=== PATIENT | female | born 1945 | race Caucasian/White ===

== ENCOUNTER 2021-11-07 17:28 | Emergency (ER) | payer MEDICARE, OTHER ==
[2021-11-07] MEDS ORDERED: Sodium Chloride 0.9% 1000 ML 1,000 ML IV STA (17:51)
[2021-11-07] MEDS ORDERED: BABY ASPIRIN 81 MG CHEW PO ONE (17:51)
[2021-11-07] MEDS ORDERED: Zofran 4 MG/2 ML VIAL IV ONE (17:51)
[2021-11-07] MEDS ORDERED: BABY ASPIRIN 81 MG CHEW ONE (17:55)
[2021-11-07] MEDS ORDERED: Sodium Chloride 0.9% 1000 ML 1,000 ML ONE (17:55)
[2021-11-07] MEDS ORDERED: Zofran 4 MG/2 ML VIAL ONE (17:55)
--- NOTE | 2021-11-07 18:00 | ERPHSYRPT ---
- History of Present Illness Time Seen by Provider: 11/07/21 17:39 Source: patient Exam Limitations: no limitations Patient Subjective Stated Complaint: C/O chest pain that started around 0500 today. States pain radiates into left arm and scapula. Triage Nursing Assessment: Went to get patient from the waiting area to triage and she was in the bathroom having a bowel movement. She then came out and ambulated back to her room without difficulties. No SOB noted at this time. Left arm noted to be swollen/bigger than the right; patient indicates this is normal for her with a diagnosis of lymphodema. Physician History: Patient is here with left arm pain radiating into her back. Patient has no falls or trauma. Patient states that she only has a history of hypertension. Patient does have some lymphedema in the left arm. Patient states that her chest pain started when she woke up this morning. Has continued throughout the day. It has been constant. Patient does see a reinsurance analyst. However, this is only for her hypertension. She denies any other cardiac risk factors. Timing/Duration: today Severity: mild Modifying Factors: Improves With: other Allergies/Adverse Reactions: levofloxacin [From Levaquin] Allergy (Verified 11/07/21 17:56) Penicillins Allergy (Verified 11/07/21 17:37) prednisone Allergy (Verified 11/07/21 17:56) Home Medications: Anastrozole [Arimidex] 1 tab PO DAILY 11/07/21 [History] Aspirin 81 gm Chew [Baby Aspirin 81 mg Chew] 1 tab PO DAILY 11/07/21 [History] Budesonide/Formoterol Fumarate [Budesonide-Formoterol 160-4.5] 1 puff PO DAILY 11/07/21 [History] Chlorthalidone 1 tab PO DAILY 11/07/21 [History] Hx Tetanus, Diphtheria Vaccination/Date Given: Yes Hx Influenza Vaccination/Date Given: No Hx Pneumococcal Vaccination/Date Given: No Immunizations Up to Date: Yes Travel Risk - International Travel Have you traveled outside of the country in past 3 weeks: No - Coronavirus Screening Are you exhibiting any of the following symptoms?: No Close contact with a COVID-19 positive Pt in past 14-21 Days: No - Vaccine Status Have you recieved a Covid-19 vaccination: No - Review of Systems Constitutional: No Fever, No Chills Eyes: No Symptoms Ears, Nose, & Throat: No Symptoms Respiratory: No Cough, No Dyspnea Cardiac: Chest Pain, No Edema, No Syncope Abdominal/Gastrointestinal: No Abdominal Pain, No Nausea, No Vomiting, No Diarrhea Genitourinary Symptoms: No Dysuria Musculoskeletal: No Back Pain, No Neck Pain Skin: No Rash Neurological: No Dizziness, No Focal Weakness, No Sensory Changes Psychological: No Symptoms Endocrine: No Symptoms All Other Systems: Reviewed and Negative - Past Medical History Pertinent Past Medical History: Yes Neurological History: No Pertinent History ENT History: No Pertinent History Cardiac History: Hypertension Respiratory History: Asthma Endocrine Medical History: No Pertinent History Musculoskeletal History: No Pertinent History GI Medical History: No Pertinent History History: No Pertinent History Psycho-Social History: No Pertinent History Female Reproductive Disorders: Breast Cancer Other Medical History: cyst on thyroid, Staph infection, Left arm Lymphodema - Past Surgical History Past Surgical History: Yes Cardiac: No Pertinent History Gastrointestinal: Appendectomy Genitourinary: No Pertinent History Musculoskeletal: No Pertinent History Female Surgical History: Hysterectomy, Mastectomy - Social History Smoking Status: Never smoker Exposure to second hand smoke: No Drug Use: none Patient Lives Alone: No - Nursing Vital Signs Nursing Vital Signs: Initial Vital Signs Temperature 98.8 F 11/07/21 17:39 Pulse Rate 78 11/07/21 17:39 Respiratory Rate 20 11/07/21 17:39 Blood Pressure 165/85 11/07/21 17:39 O2 Sat by Pulse Oximetry 100 11/07/21 17:39 Pain Scale Pain Intensity 7 - Physical Exam General Appearance: no apparent distress, alert Eye Exam: PERRL/EOMI, eyes nml inspection Ears, Nose, Throat Exam: normal ENT inspection, TMs normal, pharynx normal, moist mucous membranes Neck Exam: normal inspection, non-tender, supple, full range of motion Respiratory Exam: normal breath sounds, lungs clear, No respiratory distress Cardiovascular Exam: regular rate/rhythm, normal heart sounds, normal peripheral pulses Gastrointestinal/Abdomen Exam: soft, normal bowel sounds, No tenderness, No mass Back Exam: normal inspection, normal range of motion, No CVA tenderness, No vertebral tenderness Extremity Exam: normal inspection, normal range of motion, pelvis stable Neurologic Exam: alert, oriented x 3, cooperative, normal mood/affect, nml cerebellar function, nml station & gait, sensation nml, No motor deficits Skin Exam: normal color, warm, dry, No rash Lymphatic Exam: No adenopathy SpO2: 100 - Course Nursing assessment & vital signs reviewed: Yes Ordered Tests: Active Orders 24 hr Category Date Time Status EKG-ER Only STAT Care 11/07/21 17:51 Active IV Insertion STAT Care 11/07/21 17:51 Active CHEST 1 VIEW (PORTABLE) Stat Exams 11/07/21 17:51 Taken CHEST WITH CONTRAST [CT] Stat Exams 11/07/21 18:37 Ordered CBC W DIFF Stat Lab 11/07/21 17:51 Completed CMP Stat Lab 11/07/21 18:09 Completed D-DIMER QUANTITATIVE Stat Lab 11/07/21 17:51 Completed LIPASE Stat Lab 11/07/21 18:09 Completed NT PRO BNP Stat Lab 11/07/21 18:09 Completed TROPONIN Q4H Lab 11/07/21 18:08 Completed TROPONIN Q4H Lab 11/07/21 22:00 Ordered TROPONIN Q4H Lab 11/08/21 02:00 Ordered Medication Summary Generic Name Dose Route Start Last Admin Trade Name Freq PRN Reason Stop Dose Admin Sodium Chloride 1,000 mls @ 999 mls/hr 11/07/21 17:51 11/07/21 17:57 Sodium Chloride 0.9% 1000 Ml IV 11/07/21 18:51 999 mls/hr .Q1H1M STA Administration Discontinued Medications Generic Name Dose Route Start Last Admin Trade Name Freq PRN Reason Stop Dose Admin Aspirin 324 mg 11/07/21 17:51 Aspirin 81 Mg Tab.Chew PO 11/07/21 17:52 STAT ONE Aspirin Confirm 11/07/21 17:55 Aspirin 81 Mg Tab.Chew Administered 11/07/21 17:56 Dose 324 mg .ROUTE .STK-MED ONE Sodium Chloride Confirm 11/07/21 17:55 Sodium Chloride 0.9% 1000 Ml Administered 11/07/21 17:56 Dose 1,000 mls @ ud .ROUTE .STK-MED ONE Ondansetron HCl 4 mg 11/07/21 17:51 Ondansetron Hcl 4 Mg/2 Ml Vial IV 11/07/21 17:52 STAT ONE Ondansetron HCl Confirm 11/07/21 17:55 Ondansetron Hcl 4 Mg/2 Ml Vial Administered 11/07/21 17:56 Dose 4 mg .ROUTE .STK-MED ONE Lab/Rad Data: Laboratory Result Diagrams 11/07/21 17:51 11/07/21 18:09 Laboratory Results 11/07/21 11/07/21 11/07/21 Range/Units 18:09 18:08 17:51 WBC (4.0-10.5) x10^3/uL RBC (4.1-5.4) x10^6/uL Hgb (12.0-16.0) g/dL Hct (35-47) % MCV (78-100) fL MCH (26-32) pg MCHC (32-36) g/dL RDW (11.5-14.0) % Plt Count (150-450) x10^3/uL MPV (7.5-11.0) fL Gran % (36.0-66.0) % Immature Gran % (Auto) (0.00-0.4) % Nucleat RBC Rel Count (0.00-0.1) % Eos # (Auto) (0-0.5) x10^3/uL Immature Gran # (Auto) (0.00-0.03) x10^3u/L Absolute Lymphs (auto) (1.0-4.6) x10^3/uL Absolute Monos (auto) (0.0-1.3) x10^3/uL Absolute Nucleated RBC (0.00-0.01) x10^3u/L Lymphocytes % (24.0-44.0) % Monocytes % (0.0-12.0) % Eosinophils % (0.00-5.0) % Basophils % (0.0-0.4) % Absolute Granulocytes (1.4-6.9) x10^3/uL Basophils # (0-0.4) x10^3/uL D-Dimer 0.92 H* (0.0-0.50) mg/L Sodium 138 (137-145) mmol/L Potassium 3.5 (3.5-5.1) mmol/L Chloride 100 (98-107) mmol/L Carbon Dioxide 30 (22-30) mmol/L Anion Gap 11.5 (5-15) MEQ/L BUN 31 H (7-17) mg/dL Creatinine 0.91 (0.52-1.04) mg/dL Estimated GFR > 60.0 ML/MIN Glucose 108 H (74-106) mg/dL Calcium 10.5 H (8.4-10.2) mg/dL Total Bilirubin 0.40 (0.2-1.3) mg/dL AST 34 (14-36) U/L ALT 30 (0-35) U/L Alkaline Phosphatase 74 (38-126) U/L Troponin I < 0.012 (0.000-0.034) ng/mL NT-Pro-B Natriuret Pep 89.3 (0-1800) pg/mL Serum Total Protein 8.0 (6.3-8.2) g/dL Albumin 4.4 (3.5-5.0) g/dL Lipase 93 (23-300) U/L 11/07/21 Range/Units 17:51 WBC 6.8 (4.0-10.5) x10^3/uL RBC 3.97 L (4.1-5.4) x10^6/uL Hgb 13.2 (12.0-16.0) g/dL Hct 39.4 (35-47) % MCV 99.2 (78-100) fL MCH 33.2 H (26-32) pg MCHC 33.5 (32-36) g/dL RDW 12.9 (11.5-14.0) % Plt Count 401 (150-450) x10^3/uL MPV 9.5 (7.5-11.0) fL Gran % 71.7 H (36.0-66.0) % Immature Gran % (Auto) 0.1 (0.00-0.4) % Nucleat RBC Rel Count 0.0 (0.00-0.1) % Eos # (Auto) 0.30 (0-0.5) x10^3/uL Immature Gran # (Auto) 0.01 (0.00-0.03) x10^3u/L Absolute Lymphs (auto) 1.16 (1.0-4.6) x10^3/uL Absolute Monos (auto) 0.41 (0.0-1.3) x10^3/uL Absolute Nucleated RBC 0.00 (0.00-0.01) x10^3u/L Lymphocytes % 17.1 L (24.0-44.0) % Monocytes % 6.0 (0.0-12.0) % Eosinophils % 4.4 (0.00-5.0) % Basophils % 0.7 (0.0-0.4) % Absolute Granulocytes 4.87 (1.4-6.9) x10^3/uL Basophils # 0.05 (0-0.4) x10^3/uL D-Dimer (0.0-0.50) mg/L Sodium (137-145) mmol/L Potassium (3.5-5.1) mmol/L Chloride (98-107) mmol/L Carbon Dioxide (22-30) mmol/L Anion Gap (5-15) MEQ/L BUN (7-17) mg/dL Creatinine (0.52-1.04) mg/dL Estimated GFR ML/MIN Glucose (74-106) mg/dL Calcium (8.4-10.2) mg/dL Total Bilirubin (0.2-1.3) mg/dL AST (14-36) U/L ALT (0-35) U/L Alkaline Phosphatase (38-126) U/L Troponin I (0.000-0.034) ng/mL NT-Pro-B Natriuret Pep (0-1800) pg/mL Serum Total Protein (6.3-8.2) g/dL Albumin (3.5-5.0) g/dL Lipase (23-300) U/L - Progress Progress: improved Progress Note: 11/07/21 17:57 Differential diagnosis includes STEMI, PE, infection, pneumonia. -We will obtain EKG, basic labs, two troponins. Consider a CT scan depending on D-dimer and reexam. 11/07/21 18:43 D-dimer is positive. Therefore will obtain a CT scan of the chest looking for PE this could also demonstrate a aortic dissection. Plan for second troponin. Transfer of care to Dr. Johnson. He will follow-up on all labs and imaging. He will reexamine patient and have appropriate disposition. - Departure Clinical Impression: Chest pain Condition: Good Critical Care Time: No
[2021-11-07 18:11] LABS: Absolute Neutrophil Ct (ANC) 4.87 x10^3/uL (1.4-6.9); Basophil (Absolute #) 0.05 x10^3/uL (0-0.4); Eosinophil % 4.4 % (0.00-5.0); Hematocrit 39.4 % (35-47); Hemoglobin 13.2 g/dL (12.0-16.0); Lymphocyte (Absolute #) 1.16 x10^3/uL (1.0-4.6); Lymphocytes % 17.1 % (24.0-44.0); Mean Cell Volume 99.2 fL (78-100); Mean Corpuscular Hemoglobin 33.2 pg (26-32); Mean Corpuscular Hgb Concent. 33.5 g/dL (32-36); Mean Platelet Volume 9.5 fL (7.5-11.0); Monocyte (Absolute #) 0.41 x10^3/uL (0.0-1.3); Neutrophil % 71.7 % (36.0-66.0); Platelet Count 401 x10^3/uL (150-450); Red Blood Count 3.97 x10^6/uL (4.1-5.4); Red Cell Distribution Width 12.9 % (11.5-14.0); White Blood Count 6.8 x10^3/uL (4.0-10.5)
[2021-11-07 18:34] LABS: ALBUMIN 4.4 g/dL (3.5-5.0); ALKALINE PHOSPHATASE 74 U/L (38-126); ANION GAP 11.5 MEQ/L (5-15); BLOOD UREA NITROGEN 31 mg/dL (7-17); CHLORIDE 100 mmol/L (98-107); Calcium 10.5 mg/dL (8.4-10.2); Carbon Dioxide 30 mmol/L (22-30); Creatinine 1 0.91 mg/dL (0.52-1.04); EST GLOMERULAR FILTRATION RATE > 60.0 ML/MIN; Glucose 108 mg/dL (74-106); LIPASE 93 U/L (23-300); NT PRO BNP 89.3 pg/mL (0-1800); Potassium 3.5 mmol/L (3.5-5.1); SGOT/AST 34 U/L (14-36); SGPT/ALT 30 U/L (0-35); SODIUM 138 mmol/L (137-145)
[2021-11-07 20:49] VITALS: BP 173/86; PULSE 68; O2SAT 95
--- NOTE | 2021-11-08 08:44 | XRAY ---
Indication: Chest pain. Elevated d-dimer. Multiple contiguous axial images obtained through the abdomen and pelvis using 100 cc Isovue 370 contrast and PE protocol. Comparison: None Good opacification of the pulmonary arteries to include the lobar and segmental branches. No pulmonary embolus. Heart is not enlarged. Aorta is minimally arteriosclerotic without aneurysm/dissection. Small left hilar calcified nodes. No pathologic mediastinal/hilar lymphadenopathy. Small hiatal hernia. Lungs demonstrates minimal peripheral fibrosis/scarring bilaterally and tiny left upper lobe peripheral calcified granulomas. Incidental anatomic variant for azygos lobe. No suspicious pulmonary mass, infiltrate, effusion, or pneumothorax. Bony thorax intact with minimal degenerative changes throughout the spine. Incidental bilateral breast implants with surgical clips. Limited upper abdomen demonstrates 2 hepatic cysts, largest right lobe measuring 1.4 cm. Impression: 1. Negative pulmonary embolus. No acute cardiopulmonary abnormalities. 2. Chronic findings including pulmonary fibrosis/scarring, small hiatal hernia, hepatic cysts, and evidence for old granulomatous disease. Comment: Preliminary interpretation made by [facility]. No critical discrepancy.
--- NOTE | 2021-11-08 08:44 | XRAY ---
Indication: Chest pain. Comparison: None Portable chest inflated and clear with a few incidental tiny calcified granulomas. Heart not enlarged. Bony thorax intact with osteopenia and minimal degenerative changes. Incidental bilateral breast implants with surgical clips. Impression: Nonacute chest with chronic features.
== END 2021-11-07 22:24 | disposition home or self-care (01) ==
LOC: ED 17:28
DX: R07.9 Chest pain, unspecified (principal); M79.602 Pain in left arm; I10 Essential (primary) hypertension; Z79.899 Other long term (current) drug therapy; Z28.310 Unvaccinated for COVID-19
CPT/HCPCS: 36000; 36415; 71045; 71260; 80053; 83690; 83880; 84484; 85025; 85379; 93005; 96360; 99284; J2405; A9270-GY

== ENCOUNTER 2024-04-15 16:48 | Emergency (ER) | payer MEDICARE, OTHER ==
[2024-04-15 19:10] VITALS: TEMP 98.5
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
[2024-04-15 19:38] VITALS: RESP 18
[2024-04-15 20:03] VITALS: BP 164/85; PULSE 67
[2024-04-15 20:31] VITALS: O2SAT 97
--- NOTE | 2024-04-16 08:52 | XRAY ---
Indication: Head injury following fall. Multiple contiguous axial images obtained through the head without contrast. Comparison: None Age-appropriate global atrophy and mild periventricular degenerative micro-ischemia bilaterally. No acute intracranial hemorrhage, abnormal extra-axial fluid collection, or mass effect. Fourth ventricle is midline without hydrocephalus. Small left frontal scalp hematoma. Bony calvarium intact. There is moderate/significant mucoperiosteal thickening all visualized paranasal sinuses with tiny fluid leveling. Mastoid air cells are clear. Impression: 1. Left frontal scalp hematoma. Otherwise nonacute senile brain. 2. Incidental pansinusitis.
== END 2024-04-15 20:30 | disposition home or self-care (01) ==
LOC: ED 16:48
DX: S00.03XA Contusion of scalp, initial encounter (principal); W10.8XXA Fall (on) (from) other stairs and steps, initial encounter; J32.4 Chronic pansinusitis; I10 Essential (primary) hypertension; Z79.02 Long term (current) use of antithrombotics/antiplatelets; Z79.899 Other long term (current) drug therapy
CPT/HCPCS: 70450; 99283; 99284